=== PATIENT | female | born 1960 | race Caucasian/White ===

== ENCOUNTER 2017-01-23 22:58 | Inpatient (IN) | payer OTHER ==
--- NOTE | ~2017-01-23 | US85 ---
[facility] A Service of [facility] RADIOLOGY TEXT RESULTS PATIENT: MONICA MCKEON LOCATION: [place] [address]- : [birth year] UNIT #: [id number] AGE: [address]: Christiana Lowe MD SEX: F ORDER DR: [id number] [facility] [address] [place], [place] [address] [id number] I MR#: [id number] Acc #: [id number] NAME: MONICA MCKEON : 1960 SEX: F STUDY DATE/TIME: 01/28/2017 10:39 UNIT: [facility] ROOM: [facility] STUDY DESCRIPTION: US LE Veins Unilat or Ltd Stdy Attending Physician: Christiana Lowe M.D. Ordering Physician: Christiana Lowe M.D. Primary Care Physician: Primary Care Physician No MEDICAL IMAGING REPORT This report is preliminary unless electronic signature is present EXAM Lower extremity ultrasound or DVT on the right, 01/28/2017 INDICATIONS 56-year-old female with swelling of the right lower extremity for 6 days. No known injury. The patient is on baby aspirin daily. No history of DVT. TECHNIQUE Klein-scale color Doppler and spectral analysis of the right lower extremity was performed. We have no comparison studies. FINDINGS The exam is negative. No DVT is identified in the right lower extremity. IMPRESSION Negative. No DVT in the right lower extremity. Dictated by... Tenzin Calzada M.D. THIS IS AN ELECTRONICALLY VERIFIED REPORT Tenzin Calzada M.D. at 01/28/2017 4:19 PM Bhargavi TD: 01/28/2017 13:24 JOB #: [id number] MEDICAL IMAGING REPORT Page 1 of 1 COPY
--- NOTE | ~2017-01-23 | HP ---
Unit #: [id number] #: [id number] Patient: MONICA MCKEON [id number] [address] [place], [place] [address] [id number] I MR#: [id number] NAME: MONICA MCKEON ROOM: [facility] Age: 56 Sex: F Admission Date: 01/24/2017 : 1960 Attending Physician: Dominga Fay M.D. Primary Care Physician: No Primary Care Physician HISTORY AND PHYSICAL CHIEF COMPLAINT Extensive right leg cellulitis with early sepsis and acute kidney injury. HISTORY This 56-year-old female with CAD and normal LV function, AODM, hypertension, is admitted for right leg cellulitis with early sepsis and acute kidney injury. The patient states that she was well until three days prior to admission when she developed fevers, nausea, vomiting, lightheadedness. Her sister told the ER physician earlier that the patient had temperatures of 102 to 104 degrees with some mild confusion. In the ER, her right leg is very cellulitic. She was admitted 10/25/2016 for Strep pyogenes sepsis with bacteremia secondary to right thigh cellulitis. Also had acute kidney injury during that hospitalization. Was noted to have mild adenopathy in the right groin, thought to be reactive. PAST MEDICAL HISTORY 1. Admission 10/25/2016 for Strep pyogenes sepsis with bacteremia and acute kidney injury. She had right thigh cellulitis with mild right groin lymphadenopathy. Echo revealed ejection fraction of 50% to 55% with grade 2 diastolic dysfunction. She was seen by infectious disease, and ultimately underwent multiple dental extractions. Was also seen by hematology for persistent leukocytosis. Most recent white blood count at [facility] was 9.6 on 11/21/2016. 2. Recent admission to [facility] in October for suspected CVA. MRI scan reveals progressive small vessel ischemic disease. Loop recorder was placed. She was noted to have mild groin lymphadenopathy on CT scan at that time and was placed on antibiotics. Again, her white blood count at the time of discharge was normal. 3. History of UTIs. 4. AODM. 5. Hypertension. 6. Endometrial CA, status post GULSHAN and radiation about ten years ago. 7. CAD with normal LV function although she does have diastolic dysfunction. Cardiac catheterization 04/2016 at [facility] - three vessel CAD, most significant in the distal LAD but all vessels were very small, mild LV dysfunction, mild MR. The patient is status post RFA for SVT. 8. Hysterectomy. 9. SVT with RFA. ALLERGIES Unit #: [id number] #: [id number] Patient: MONICA MCKEON Alfide vera and hydrocortisone. MEDICATIONS Home medications from the best I can determine include: 1. Coreg 12.5 mg b.i.d. 2. Plavix 75 mg daily. 3. Hydrochlorothiazide 25 mg daily. 4. Aspirin 81 mg daily. 5. Lipitor 40 mg daily. 6. Zyrtec 10 mg daily. 7. Colace. 8. Hydralazine 50 mg t.i.d. 9. Lisinopril 40 mg daily. 10. Metformin 1000 mg b.i.d. 11. Omeprazole 20 mg daily. 12. vitamins with iron. FAMILY HISTORY Cirrhosis. SOCIAL HISTORY The patient lives alone. She is a lifelong nonsmoker, does not drink alcohol. REVIEW OF SYSTEMS Notable for fevers, lightheadedness, nausea, vomiting, diabetes, hypertension, CAD, endometrial cancer, above mentioned procedures. All other systems were reviewed and are otherwise negative. PHYSICAL EXAMINATION GENERAL APPEARANCE: Pale 56-year-old, moderately obese female, currently in no acute distress. VITAL SIGNS: Temperature 99.2, pulse 100, respirations 18, initial blood pressure 99/53, currently is 104/57 after IV fluids. O2 saturation 99% on room air. HEENT: Eyes PERRLA. Extraocular muscles are intact. Pharynx - status post multiple dental extractions noted. NECK: Supple without adenopathy or thyromegaly. CHEST: Clear. BACK: Without CVA tenderness. CARDIAC: Normal S1 and S2 with a soft systolic murmur heard throughout most of the precordium. ABDOMEN: Bowel sounds are present. No hepatosplenomegaly, tenderness or masses. EXTREMITIES: With right leg edema as compared to the left. There is extensive cellulitis of the right leg from just above the ankle into the thigh region with induration in the right groin as well. No open areas or fluctuant areas that I can see. Pedal pulses are present. No tinea pedis on the right. Negative Homans sign. One splinter hemorrhage is noted over the right second toe nail bed. The patient has a superficial ulcer left foot. However, her symptoms of cellulitis involve the right leg. NEUROLOGIC EXAM: The patient is awake, she is alert. She is a little slow to respond. Her cranial nerves are intact. She had equal strength throughout and is able to sit up without assistance. DIAGNOSTIC STUDIES LABORATORY: Admission labs - hematocrit is 34.8, white blood count is 26.4, normal platelet count. 7 bands noted. Unit #: [id number] #: [id number] Patient: MONICA MCEKON SMA-12 - glucose 149, BUN 47, creatinine 2.7, up from a BUN of 20, creatinine of 1.1 11/01/2016. Sodium 134, CO2 is 19. Lactic acid is normal, of uncertain significance. Cardiac markers are negative. Urinalysis - trace leukocyte esterase without significant white or red cells. IMAGING: Chest x-ray - stable, mild cardiomegaly. Loop recorder which is new. Old granulomatous disease. CARDIOVASCULAR: EKG - normal sinus rhythm, rate 75. ASSESSMENT 1. Recurrent and extensive right leg cellulitis without open areas or definite fluctuance: Patient presents with early sepsis. She was admitted earlier this year for Strep pyogenes sepsis and bacteremia with acute kidney injury secondary to cellulitis of the right leg. 2. Coronary artery disease with normal LV function. 3. Acute kidney injury. 4. Essential hypertension. 5. Suspected cerebrovascular accident, admitted to [facility] 10/2016 with MRI scan showing progressive small vessel ischemic disease. A loop recorder was placed at that time which is still present. 6. Adult onset diabetes mellitus, on metformin. 7. Status post total abdominal hysterectomy and XRT for endometrial CA. 8. Status post radiofrequency ablation for supraventricular tachycardia. 9. Mild right groin adenopathy in September and noted in October at [facility], thought to be reactive: Last white blood count at [facility] was normal at the time of discharge. PLANS 1. Vancomycin and Zosyn pending cultures, but will ask infectious disease to see again given recurrence of symptoms. 2. Aggressive IV fluids. 3. Hold LA inhibitor, metformin, hydrochlorothiazide, and Norvasc. Will decrease Coreg for now given low blood pressures. 4. DVT prophylaxis. 5. Check bilateral venous Dopplers to rule out DVT. Dictated by Dominga Fay M.D. AML/df TD: 01/24/2017 05:38 JOB #: [id number] Unit #: [id number] #: [id number] Patient: MONICA MCKEON HISTORY AND PHYSICAL Page 1 of 1 X Dominga Fay MD X HISTORY AND PHYSICAL
--- NOTE | ~2017-01-23 | CR126 ---
[facility] A Service of [facility] RADIOLOGY TEXT RESULTS PATIENT: MONICA MCKEON LOCATION: [facility] 478- : [birth year] UNIT #: [id number] AGE: [address]: Eric Victor MD SEX: F ORDER DR: [id number] [facility] [address] [place], [place] [address] [id number] I MR#: [id number] Acc #: [id number] NAME: MONICA MCKEON : 1960 SEX: F STUDY DATE/TIME: 01/25/2017 13:41 UNIT: C3A PCU ROOM: [facility] STUDY DESCRIPTION: CR Foot Complete Min 3 View Lt Attending Physician: Christiana Lowe M.D. Ordering Physician: Christiana Lowe M.D. Primary Care Physician: No Primary Care Physician MEDICAL IMAGING REPORT This report is preliminary unless electronic signature is present EXAM Left foot, 3 views COMPARISON None. INDICATION 56-year-old female with left foot pain and wound at the base of the fourth toe for several weeks. History of diabetes. FINDINGS There are very large enthesophytes at both poles of the calcaneal tubercle. There is diffuse osteopenia. Enthesopathy noted at the base of the fifth metatarsal. No radiopaque foreign bodies. Bones are anatomically aligned. No evidence of acute fracture or osseous destruction. IMPRESSION 1. No evidence of acute fracture, dislocation or osteomyelitis. No radiopaque foreign bodies. 2. Severe enthesopathy at both poles of the calcaneus. Dictated by... David Feng M.D. THIS IS AN ELECTRONICALLY VERIFIED REPORT David Feng M.D. at 01/30/2017 7:27 PM LEIDY/rnr TD: 01/25/2017 18:39 JOB #: [id number] MEDICAL IMAGING REPORT [facility] A Service [facility] RADIOLOGY TEXT RESULTS PATIENT: MONICA MCKEON LOCATION: [facility] [id number] : [birth year] UNIT #: [id number] AGE: [address]: Eric Victor MD SEX: F ORDER DR: Page 1 of 1 COPY
--- NOTE | ~2017-01-23 | DS ---
Unit #: [id number] #: [id number] Patient: MONICA RIGGS [id number] [address] [place], [place] [address] [id number] I MR#: [id number] NAME: MONICA RIGGS ROOM: 478 Age: 56 Sex: F Admission Date: 01/24/2017 : 1960 Discharge Date: Attending Physician: Christiana Lowe M.D. Primary Care Physician: No Primary Care Physician DISCHARGE SUMMARY ADDENDUM PRINCIPAL DIAGNOSES 1. Sepsis secondary to right lower leg cellulitis. 2. Acute kidney injury and chronic kidney disease stage 3 with baseline creatinine of 1.2. Discharge creatinine 1.2. 3. Nonanion gap metabolic acidosis secondary to RTA now resolved. 4. Normocytic anemia. Discharge hemoglobin 8.5. 5. Recurrent hypoglycemia secondary to sulfonylurea treatment with acute kidney injury, now resolved. 6. Diabetes mellitus type 2, noninsulin requiring (1) . Hemoglobin A1C 8.3 in September of 2016. 7. Severe deconditioning. 8. Recent history of a stroke without sequelae. 9. Hypertension. 10. History of endometrial cancer. 11. Obesity. 12. Chronic diastolic congestive heart failure with unknown ejection fraction. CONSULTANTS 1. Dr. Calvin, Infectious Disease. 2. Dr. Valerio, General Surgery. PROCEDURES 1. X-ray of the left foot, on January 25, 2017, without evidence of dislocation or osteomyelitis. 2. MRI of right tibia and fibula without contrast with generalized soft tissue swelling and edema about the lower extremity, same from the knee to the ankle. Confluent edema is noted but no evidence of abscess. Cellulitis is noted. Diffuse edema throughout lower leg musculature. This is nonspecific. Questionable myositis. I will note CPK was normal. 3. MRI of right ankle without contrast, on January 26, 2017, with generalized soft tissue swelling and edema about the ankle. Nonspecific edema in the foot musculature. Peroneus longus and brevis tendinopathy with longitudinal split in the peroneus brevis. CLINICAL HISTORY AND HOSPITAL COURSE Ms. Riggs is a 56-year-old female who presents to the emergency department with extensive right leg cellulitis. She was febrile in the emergency department and was found to have an elevated WBC count of 26,000 with associated bandemia. Creatinine was also elevated at 2.7, up from a baseline of approximately 1.2. She also had a mild nonanion gap metabolic Unit #: [id number] #: [id number] Patient: MONICA RIGGS acidosis. The patient was subsequently admitted. In regards to the patient's significant cellulitis, she was placed on empiric vancomycin and Rocephin per Dr. Calvin's recommendations. On this treatment, the patient is improved. Her fever has slowly resolved and her WBC count is now down to 13,000. Her leg does appear significantly improved. Given the extensive cellulitis and recurrence in her lower leg, there were concerns about underlying muscle and/or fascial involvement and MRI of he lower leg was done. There were questions about myositis but I will note her CPK is normal. I did have [facility] evaluate her and they feel that myositis is highly unlikely. I will continue antibiotics upon discharge per ID's recommendations. In regards to the patient's acute kidney injury, she was maintained on IV fluids. Nephrotoxic medications were discontinued and creatinine has now returned to her baseline. I am going to reinitiate her lisinopril and her Lasix and renal function can be followed closely. The patient did have some significant recurrent hypoglycemia secondary to her chronic sulfonylurea therapy in combination with her acute kidney injury. Her sulfonylurea has been held and, for a short period, she was maintained on D5 fluids. These have been discontinued and sugars are now running in the high one hundreds to low two hundreds. We will reinitiate Metformin upon discharge and, if sugars again remain elevated, can reinitiate her sulfonylurea. The patient does have some mild anemia and hemoglobin has remained stable, anywhere from 8.5 to 9 which is very near her baseline. Vitamin B12 was checked a few months ago and mildly low and she can be reinitiated on oral supplementation. Iron at that time was also low and we will place her on iron supplementation. The patient is significantly deconditioned and will be discharged to [facility] for rehab when antibiotics are determined per Infectious Disease. DISCHARGE CONDITION Stable. DISCHARGE STATUS Discharged to rehab. DISCHARGE MEDICATIONS 1. Tylenol 650 mg p.o. q.6 hours p.r.n. for torres or fever. 2. Metformin 1,000 mg b.i.d. 3. Zyrtec 10 mg daily. 4. Norvasc 5 mg daily. 5. Metoprolol succinate 50 mg b.i.d. 6. Lasix 20 mg daily. 7. Lipitor 40 mg at bedtime. 8. Zestril 40 mg daily. 9. A vitamin daily. 10. Aspirin 81 mg daily. 11. Plavix 75 mg daily. 12. Limestone 5/325 mg one tablet p.o. q.6 hours p.r.n. for pain. 13. Potassium chloride 20 mEq p.o. daily. 14. Vitamin B12 1,000 mcg p.o. daily. 15. Ferrous gluconate 324 mg b.i.d. Unit #: [id number] #: [id number] Patient: MONICA RIGGS DISCHARGE INSTRUCTIONS 1. The patient was instructed to follow a Heart Healthy diabetic diet. 2. She will continue Accu-Cheks a.c. and h.s. 3. Again, if sugars remain high, she can be restarted on her home Glynase which is 4 mg daily. 4. She can increase her activity as tolerated under the care of Physical Therapy. 5. She should keep her right leg elevated at all times with the foot of bed at 30 degrees. 6. Areas of erythema and ecchymoses should be coated with Bactroban 2% cream in combination with betamethasone 0.005% cream b.i.d. FOLLOWUP The patient will follow up with her primary care provider upon discharge from rehab. Antibiotics are to be dictated as an addendum. Time spent on discharge-34 minutes. Dictated by... Zuleyma Hartley TD: 01/28/2017 07:43 JOB #: [id number] ADDENDUM DISPOSITION The patient will be discharged to rehab today. ADDITIONAL DISCHARGE MEDICATION In terms of antibiotics, she will go on doxycycline 100 mg p.o. b.i.d. for 10 days and Augmentin 875 mg p.o. b.i.d. also for 10 days. Dictated by... Zuleyma Hartley TD: 01/28/2017 13:50 JOB #: [id number] CC: Nicola/allyn Please Delete DISCHARGE SUMMARY Page 1 of 1 X Christiana Lowe MD X DISCHARGE SUMMARY
--- NOTE | ~2017-01-23 | DS ---
Unit #: [id number] #: [id number] Patient: MONICA RIGGS [id number] [address] [place], [place] [address] [id number] I MR#: [id number] NAME: MONICA RIGGS ROOM: 478 Age: 56 Sex: F Admission Date: 01/24/2017 : 1960 Discharge Date: 01/28/2017 Attending Physician: Christiana Lowe M.D. Primary Care Physician: No Primary Care Physician DISCHARGE SUMMARY PRINCIPAL DIAGNOSES 1. Sepsis secondary to right right and right lower leg cellulitis. 2. Acute kidney injury and chronic kidney disease stage 3 with baseline creatinine of 1.2. Discharge creatinine 1.2. 3. Nonanion gap metabolic acidosis secondary to RTA now resolved. 4. Normocytic anemia. Discharge hemoglobin 8.5. 5. Recurrent hypoglycemia secondary to sulfonylurea treatment with acute kidney injury, now resolved. 6. Diabetes mellitus type 2, noninsulin requiring (1) . Hemoglobin A1C 8.3 in September of 2016. 7. Severe deconditioning. 8. Recent history of a stroke without sequelae. 9. Hypertension. 10. History of endometrial cancer. 11. Obesity. 12. Chronic diastolic congestive heart failure with unknown ejection fraction. CONSULTANTS 1. Dr. Calvin, Infectious Disease. 2. Dr. Valerio, General Surgery. PROCEDURES 1. X-ray of the left foot, on January 25, 2017, without evidence of dislocation or osteomyelitis. 2. MRI of right tibia and fibula without contrast with generalized soft tissue swelling and edema about the lower extremity, same from the knee to the ankle. Confluent edema is noted but no evidence of abscess. Cellulitis is noted. Diffuse edema throughout lower leg musculature. This is nonspecific. Questionable myositis. I will note CPK was normal. 3. MRI of right ankle without contrast, on January 26, 2017, with generalized soft tissue swelling and edema about the ankle. Nonspecific edema in the foot musculature. Peroneus longus and brevis tendinopathy with longitudinal split in the peroneus brevis. CLINICAL HISTORY AND HOSPITAL COURSE Ms. Riggs is a 56-year-old female who presents to the emergency department with extensive right leg cellulitis. She was febrile in the emergency department and was found to have an elevated WBC count of 26,000 with associated bandemia. Creatinine was also elevated at 2.7, up from a baseline of approximately 1.2. She also had a mild nonanion gap metabolic acidosis. The patient was subsequently admitted. Unit #: [id number] #: [id number] Patient: MONICA RIGGS In regards to the patient's significant cellulitis, she was placed on empiric vancomycin and Rocephin per Dr. Calvin's recommendations. On this treatment, the patient is improved. Her fever has slowly resolved and her WBC count is now down to 13,000. Her leg does appear significantly improved. Given the extensive cellulitis and recurrence in her lower leg, there were concerns about underlying muscle and/or fascial involvement and MRI of he lower leg was done. There were questions about myositis but I will note her CPK is normal. I did have [facility] evaluate her and they feel that myositis is highly unlikely. I will continue antibiotics upon discharge per ID's recommendations. In regards to the patient's acute kidney injury, she was maintained on IV fluids. Nephrotoxic medications were discontinued and creatinine has now returned to her baseline. I am going to reinitiate her lisinopril and her Lasix and renal function can be followed closely. The patient did have some significant recurrent hypoglycemia secondary to her chronic sulfonylurea therapy in combination with her acute kidney injury. Her sulfonylurea has been held and, for a short period, she was maintained on D5 fluids. These have been discontinued and sugars are now running in the high one hundreds to low two hundreds. We will reinitiate Metformin upon discharge and, if sugars again remain elevated, can reinitiate her sulfonylurea. The patient does have some mild anemia and hemoglobin has remained stable, anywhere from 8.5 to 9 which is very near her baseline. Vitamin B12 was checked a few months ago and mildly low and she can be reinitiated on oral supplementation. Iron at that time was also low and we will place her on iron supplementation. The patient is significantly deconditioned and will be discharged to [facility] for rehab when antibiotics are determined per Infectious Disease. DISCHARGE CONDITION Stable. DISCHARGE STATUS Discharged to rehab. DISCHARGE MEDICATIONS 1. Tylenol 650 mg p.o. q.6 hours p.r.n. for torres or fever. 2. Metformin 1,000 mg b.i.d. 3. Zyrtec 10 mg daily. 4. Norvasc 5 mg daily. 5. Metoprolol succinate 50 mg b.i.d. 6. Lasix 20 mg daily. 7. Lipitor 40 mg at bedtime. 8. Zestril 40 mg daily. 9. A vitamin daily. 10. Aspirin 81 mg daily. 11. Plavix 75 mg daily. 12. Closter 5/325 mg one tablet p.o. q.6 hours p.r.n. for pain. 13. Potassium chloride 20 mEq p.o. daily. 14. Vitamin B12 1,000 mcg p.o. daily. 15. Ferrous gluconate 324 mg b.i.d. DISCHARGE INSTRUCTIONS Unit #: [id number] #: [id number] Patient: MONICA RIGGS 1. The patient was instructed to follow a Heart Healthy diabetic diet. 2. She will continue Accu-Cheks a.c. and h.s. 3. Again, if sugars remain high, she can be restarted on her home Glynase which is 4 mg daily. 4. She can increase her activity as tolerated under the care of Physical Therapy. 5. She should keep her right leg elevated at all times with the foot of bed at 30 degrees. 6. Areas of erythema and ecchymoses should be coated with Bactroban 2% cream in combination with betamethasone 0.005% cream b.i.d. FOLLOWUP The patient will follow up with her primary care provider upon discharge from rehab. Antibiotics are to be dictated as an addendum. Time spent on discharge-34 minutes. Dictated by... Christiana Lowe M.D. YARELIS/mell TD: 01/28/2017 07:43 JOB #: [id number] DISCHARGE SUMMARY Page 1 of 1 X Christiana Lowe MD DISCHARGE SUMMARY
--- NOTE | ~2017-01-23 | EKG ---
PATIENT: MONICA MCKEON UNIT #: [id number] Ventricular Rate: 75 BPM Atrial Rate: 75 BPM P-R Interval: 154 ms QRS Duration: 96 ms Q-T Interval: 448 ms QTC Calculation(Bezet): 500 ms P Sinai: 36 degrees Calculated R Sinai: -3 degrees Calculated T Sinai: 59 degrees Diagnosis Line: Normal sinus rhythm Diagnosis Line: Prolonged QT Diagnosis Line: Abnormal ECG Diagnosis Line: When compared with ECG of 25-OCT-2016 06:10, Diagnosis Line: Right bundle branch block is no longer Present Diagnosis Line: Confirmed by SEGUNDO WEST MD ([id number]) on Diagnosis Line: 01/25/2017 4:32:07 PM INTERPRETING MD: BRETT MELENDEZ
--- NOTE | ~2017-01-23 | MR182 ---
[facility] A Service of [facility] & [facility] RADIOLOGY TEXT RESULTS PATIENT: MONICA MCKEON LOCATION: [facility] [id number] : 62 UNIT #: [id number] AGE: [address]: Christiana Lowe MD SEX: F ORDER DR: [id number] [facility] [address]. [place], [place] [address] [id number] I MR#: [id number] Acc #: [id number] NAME: MONICA MCKEON : 1960 SEX: F STUDY DATE/TIME: 01/26/2017 22:11 UNIT: C3A PCU ROOM: [facility] STUDY DESCRIPTION: MR Tibia and Fibula Wo Cont Rt Attending Physician: Christiana Lowe M.D. Ordering Physician: Aubrey Calvin M.D. Primary Care Physician: Primary Care Physician No MRI CENTER REPORT This report is preliminary unless electronic signature is present. EXAM MRI of the right lower leg. HISTORY 56-year-old female with fever x2 days, vomiting, right lower leg swelling. Suspect cellulitis. Evaluate for possible soft tissue abscess, septic arthritis. FINDINGS Multiplanar, multiecho imaging was performed of the right lower leg utilizing a high field magnet dedicated protocol. Examination demonstrates generalized soft tissue swelling and edema about the lower extremity extending from the knee to the ankle. There are some areas of confluent edema within the subcutaneous tissues. There is also mild generalized edema within the lower leg musculature involving the anterior, lateral, posterior and deep compartments. Small amount of intrafascial edema noted between the soleus and the gastrocnemius muscles. Moderate fatty atrophy of the medial head of the gastrocnemius muscle. Visualized neurovascular structures appear normal. Knee joint is only partially visualized and demonstrates minimal fluid but no marrow edema. Early arthritic changes are seen within the knee joint. Visualized ankle joint unremarkable. Please see separate MRI of the ankle report for details. No marrow edema. IMPRESSION 1. Generalized soft tissue swelling and edema about the lower extremity extending from the knee to the ankle with areas of s confluent edema but no drainable fluid collection or abscess. In the appropriate setting findings are compatible with cellulitis. 2. Mild but diffuse edema throughout the lower leg musculature with a small amount of intrafascial edema deep to the medial head of the gastrocnemius muscle. Findings are nonspecific and may be reactive due to overlying soft tissue swelling and edema. Diffuse myositis STS. [facility] A Service of [facility] RADIOLOGY TEXT RESULTS PATIENT: MONICA MCKEON LOCATION: [place] [address] : [birth year] UNIT #: [id number] AGE: [address]: Christiana Lowe MD SEX: F ORDER DR: considered less likely to involve all of the compartments. The interfascial edema is also nonspecific, could be related to generalized soft tissue swelling and edema. This can be associated with fasciitis. Correlate with patient's clinical presentation as typically these patients are extremely septic. 3. No evidence of septic arthritis or osteomyelitis. Dictated by... Louis Santillan M.D. THIS IS AN ELECTRONICALLY VERIFIED REPORT Louis Santillan M.D. at 01/27/2017 5:29 PM Yolanda TD: 01/27/2017 08:27 JOB #: [id number] MRI CENTER REPORT Page 1 of 1 COPY
--- NOTE | ~2017-01-23 | CR72 ---
[facility] A Service of [facility] RADIOLOGY TEXT RESULTS PATIENT: MONICA MCKEON LOCATION: [facility] : 62 UNIT #: [id number] AGE: [address]: Christiana Lowe MD SEX: F ORDER DR: [id number] [facility] [address] [place], [place] [address] [id number] I MR#: [id number] Acc #: [id number] NAME: MONICA MCKEON : 1960 SEX: F STUDY DATE/TIME: 01/23/2017 23:38 UNIT: [address] ROOM: [facility] STUDY DESCRIPTION: CR Chest Single View Portable Attending Physician: Dominga Fay M.D. Ordering Physician: Piotr Johnson M.D. Primary Care Physician: Primary Care Physician No MEDICAL IMAGING REPORT This report is preliminary unless electronic signature is present EXAM AP portable chest 01/23/2017 at 23:38 HISTORY Shortness of breath, fever, nausea and vomiting today. COMPARISON PA and lateral chest radiograph 10/28/2016. FINDINGS Clear lungs. Heart size is mildly enlarged but stable. Benign calcified granulomatous changes bilaterally. Presumed loop recorder projects over the left lower mediastinum. No pneumothorax. No acute osseous abnormalities. IMPRESSION 1. No acute cardiopulmonary findings. 2. Stable mild cardiomegaly. 3. Presumed loop recorder over the left lower mediastinum, is new from 10/28/2016. 4. Benign calcified granulomatous changes. Dictated by... Olga Bloom M.D. THIS IS AN ELECTRONICALLY VERIFIED REPORT Olga Bloom M.D. at 01/25/2017 9:59 PM ROBERT/sneha TD: 01/24/2017 06:24 JOB #: [id number] [facility] A Service of [facility] RADIOLOGY TEXT RESULTS PATIENT: MONICA MCKEON LOCATION: [place] [address] : 62 UNIT #: [id number] AGE: [address]: Christiana Lowe MD SEX: F ORDER DR: MEDICAL IMAGING REPORT Page 1 of 1 COPY
--- NOTE | ~2017-01-23 | DS ---
Unit #: [id number] #: [id number] Patient: MONICA MCKEON [id number] [address] [place], [place] [address] [id number] I MR#: [id number] NAME: MONICA MCKEON ROOM: 478 Age: 56 Sex: F Admission Date: 01/24/2017 : 1960 Discharge Date: 01/30/2017 Attending Physician: Eric Victor M.D. Primary Care Physician: No Primary Care Physician DISCHARGE SUMMARY ADDENDUM The patient remained stable. Was seen by Dr. Mayfield and Dr. Calvin in ID consultation. Patient was also seen by Dr. Romo. Dr. Romo has recommended today patient can be discharged to rehab and has recommended [facility] to see patient in the rehab facility. PHYSICAL EXAMINATION GENERAL: Today patient is comfortable, is not in any acute distress. VITAL SIGNS: Her vital signs reveal temperature of 98.4, pulse is 73 per minute, respiratory rate is 16 per minute, blood pressure 183/66. HEENT: Revealed no conjunctival congestion. Sclerae nonicteric. NECK: Supple. Trachea is central. RESPIRATORY: Revealed decreased breath sounds bilaterally. There are no wheezes or crackles. HEART: Regular rate and rhythm. S1, S2. ABDOMEN: Soft, nontender. Bowel sounds are present in all four quadrants. EXTREMITIES: The patient has right lower extremity dressing. SKIN: Warm and dry. DISPOSITION Patient will be transferred to rehab facility. MEDICATIONS Medications are as dictated by Dr. Lowe, plus patient's Norvasc I have increased to 10 mg p.o. daily today because of elevated blood pressure. Kindly monitor patient's blood pressure closely. 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 A prescription for [place] is also written by Dr. Lowe and will go with patient. Dictated by... Zuleyma Can/james TD: 01/30/2017 09:20 JOB #: [id number] Unit #: [id number] #: [id number] Patient: MONICA MCKEON DISCHARGE SUMMARY Page 1 of 1 X Eric Victor MD SUMMARY
--- NOTE | ~2017-01-23 | MR11 ---
[facility] A Service of [facility] & [facility] RADIOLOGY TEXT RESULTS PATIENT: MONICA MCKEON LOCATION: [facility] 478- : 62 UNIT #: [id number] AGE: [address]: Christiana Lowe MD SEX: F ORDER DR: [id number] [facility] [address] [place], [place] [address] [id number] I MR#: [id number] Acc #: [id number] NAME: MONICA MCEKON : 1960 SEX: F STUDY DATE/TIME: 01/26/2017 22:34 UNIT: C3A PCU ROOM: [facility] STUDY DESCRIPTION: Ankle Wo Contrast Rt Attending Physician: Christiana Lowe M.D. Ordering Physician: Aubrey Calvin M.D. Primary Care Physician: No Primary Care Physician MRI CENTER REPORT This report is preliminary unless electronic signature is present. EXAM MRI of the right ankle without contrast HISTORY 56-year-old female with fever x2 days. Right lower leg swelling. Cellulitis. Pain, redness and swelling from knee to ankle. Clinical concern for abscess and/or septic arthritis. TECHNIQUE Multiplanar, multiecho imaging was performed of the right ankle utilizing a high-field magnet and dedicated protocol. FINDINGS Bone structure and alignment appears normal. No focal marrow edema. Ankle and subtalar joint fluid within normal limits. There is peroneus brevis and peroneus longus tendinopathy with a retromalleolar and inframalleolar peroneus brevis longitudinal split tear estimated about 4 cm in length. Remainder of the ankle tendon is unremarkable. Ankle ligaments unremarkable. Generalized soft tissue swelling and edema about the ankle. No drainable fluid collection or abscess. There is also edema within the deep foot musculature, nonspecific. IMPRESSION 1. Generalized soft tissue swelling and edema about the ankle in the clinical setting is consistent with cellulitis. No evidence of abscess or septic arthritis. 2. Nonspecific edema within the foot musculature. This is similar to what was seen in the lower leg. It could represent diffuse myositis though this would be uncommon. I suspect this may just be reactive. 3. Peroneus longus and brevis tendinopathy with a longitudinal split STS. [facility] A Service of [facility] & [facility] RADIOLOGY TEXT RESULTS PATIENT: MONICA MCKEON LOCATION: [facility] [id number] : 62 UNIT #: [id number] AGE: [address]: Christiana Lowe MD SEX: F ORDER DR: tear peroneus brevis. Dictated by... Louis Santillan M.D. THIS IS AN ELECTRONICALLY VERIFIED REPORT Louis Santillan M.D. at 01/27/2017 5:29 PM CLARISA/arley TD: 01/27/2017 08:58 JOB #: [id number] MRI CENTER REPORT Page 1 of 1 COPY
--- NOTE | ~2017-01-23 | CO ---
Unit #: [id number] #: [id number] Patient: MONICA MCKEON [id number] [address] [place], [place] [address] [id number] MR#: [id number] NAME: MONICA MCKEON ROOM: 337 Age: 56 Sex: F Admission Date: 01/24/2017 : 1960 Attending Physician: Christiana Lowe M.D. Primary Care Physician: No Primary Care Physician Consultation Date: 01/24/2017 CONSULTATION REPORT REASON FOR CONSULTATION Recurrent cellulitis right lower extremity. HISTORY OF PRESENT ILLNESS This is a 56-year-old female who is known to our service from 09/2016 with similar presentation. Please note that at that time her group A strep test status post right leg cellulitis with acute kidney injury, but did not show any abscess on the CT scan. The patient eventually improved and she had negative blood cultures at discharge and was sent home on oral ampicillin. The patient reports she completed her antibiotics and she has been doing well. The patient has a history of diabetes and she reports that over the last few days has had elevated blood sugars and fevers up to 104 degrees Fahrenheit. Last p.m. started with redness over her right leg with difficulty ambulating. The patient presented to the emergency room and was admitted to the hospital with cellulitis of her right lower extremity. The patient has been started on vancomycin and Zosyn, but again the patient has acute kidney injury and infectious disease was asked to evaluate for further management. PAST MEDICAL HISTORY 1. As previously stated above, group A strep sepsis with acute kidney injury and right leg cellulitis. 2. The patient also at that time had multiple dental extractions. 3. The patient had suspected (1) in October, unsure which year. 4. Urinary tract infection. 5. Diabetes. 6. Hypertension. 7. Endometrial cancer. Status post radiation and total hysterectomy. 8. Coronary artery disease. 9. Hysterectomy. SOCIAL HISTORY The patient lives with others. She denies any tobacco or alcohol abuse. ALLERGIES Aloe vera and hydrocortisone. CURRENT MEDICATIONS Vancomycin and Zosyn. For further medications please refer to the patient's MAR. REVIEW OF SYSTEMS The patient reports that she has had fever and chills at home. She reports minimal nausea. She reports pain with swelling in her right lower Unit #: [id number] #: [id number] Patient: MONICA MCKEON extremity. She also reports a wound on her left foot. PHYSICAL EXAMINATION GENERAL: This is a no apparent distress female who is lying in the bed comfortably. She does appear to have a (2) . VITALS: Temperature 99.7, no documented fever in the emergency room. Pulse 115, blood pressure 130/83, respiratory rate 18. HEENT: Pupils are equal. NECK: Trachea central. LUNGS: Clear to auscultation bilaterally with no wheezes or rhonchi noted. HEART: S1 and S2. Regular rate and rhythm. ABDOMEN: Positive bowel sounds. Soft and nontender. EXTREMITIES: Right lower extremity reveals the full length from her groin to her foot with erythema, swelling, tenderness and warmth. There is no open wound with minimal cracked skin. Her left foot reveals a healing scab also with no evidence of drainage or cellulitis. DIAGNOSTIC STUDIES IMAGING: Ultrasound of the lower extremities is pending. Chest x-ray shows no cardiopulmonary findings. LABORATORY: BUN 47, creatinine 2.7, sodium 134, potassium 3.7, chloride 101, CO2 19, bilirubin 0.8, LFT 32, ALT 29, lactic acid 1.7. White blood cell count 24.9, and on admission 26.4, hemoglobin 10.6, hematocrit 32.2, platelets 193. HIV in 10/2016 was negative. Urinalysis is unremarkable. Microbiology, blood cultures are currently pending. ASSESSMENT/PLAN This is a 56-year-old female with recent group A strep sepsis with associated right thigh cellulitis and acute kidney injury in 09/2016. The patient did well that admission and was sent home on p.o. ampicillin. The patient, however, returned after similar presentation with chills and fever at home with development of cellulitis approximately 24 hours later. The patient was admitted to the hospital and was found to have profound cellulitis in the right lower extremity, acute kidney injury with a creatinine greater than 2.7, as well as fever at home, however, not documented here. She has obvious rigors and chills. At this time the patient has a relapse of her group A strep sepsis as this is classic presentation of fever prior to cellulitis presenting. She has no open wounds on her right lower extremity. There is concern that she will need further imaging of her leg. However, CT scan with contrast would not be possible due to her kidney injury and she may not be able to an MRI due to her loop recorder in place. I am unclear if the CT scan without contrast will have any benefit, showing any abscesses. The patient may need surgical evaluation to evaluate and rule out necrotizing fasciitis. At this time the patient is on vancomycin and Zosyn and will continue at this time until discussed with Dr. Aubrey Calvin. The combination of these drugs may worsen her acute renal failure. Will have the nursing staff follow with any positive blood cultures. Will check a CBC and BMP in the a.m. Will also check a CRP and sedimentation rate and at this time, until further discussion with Dr. Aubrey Calvin, will check a CT scan of the right lower extremity without contrast. This case will be discussed in detail with Dr. Aubrey Calvin. He will be by to see this patient shortly. Thank you for allowing us to participate in the care of this patient. Further recommendations to follow pending the patient's clinical course. Unit #: [id number] #: [id number] Patient: MONICA MCKEON Dictated by... Katya MillerPSaraRSaraN. for Zuleyma Carlos/carol TD: 01/24/2017 10:21 JOB #: [id number] CONSULTATION REPORT Page 1 of 1 X X CONSULTATION REPORT
[~2017-01-23 22:58] MED LIST: ASPIRIN81 M2 PO; GLYNASE PO; IRON; LASIX20 MG PO; LIPITOR40 MG PO; LISINOPRIL PO; METFORMIN PO; METOPROLOL SUCC50 MG PO; NORVASC PO; POTASSIUM OTC; PRENATAL VITAM1 EAC1 PO; ZYRTEC10 M1 PO
[2017-01-23 23:41] LABS: BASOPHIL# 0.1 X10e3 (0-0.3); BASOPHIL% 0.5 % (0-2.5); HEMATOCRIT 34.8 % (35.0-45.0); HEMOGLOBIN 11.3 gm/dL (12.0-16.0); LYMPHOCYTE# 1.5 X10e3 (1.0-3.5); LYMPHOCYTE% 5.6 % (17.0-45.0); MEAN CELL VOLUME 86.8 FL (83-96); MEAN CORPUSCULAR HEMOGLOBIN 28.2 PG (28-34); MEAN CORPUSCULAR HGB CONC 32.5 g/dL (30-36); MEAN PLATELET VOLUME 9.4 FL (6.5-11.5); MONOCYTE% 3.8 % (3.0-12.0); NEUTROPHIL# 23.8 X10e3 (1.5-7.1); NEUTROPHIL% 90.1 % (40-75); PLATELET COUNT 215 X10e3 (140-420); RED BLOOD COUNT 4.01 X10e (3.90-5.30); RED CELL DISTRIBUTION WIDTH 14.3 % (11.0-15.5); WHITE BLOOD COUNT 26.4 X10e3 (4.0-10.5)
[2017-01-23 23:43] LABS: DIFF IND YES
[2017-01-23 23:48] LABS: POC - CKMB <1.0 ng/mL (0.0-7.9); POC - TROPONIN <0.05 ng/mL (<=0.05)
[2017-01-23 23:59] LABS: ALBUMIN SERUM 3.5 g/dL (3.5-5.0); BILIRUBIN, DIRECT 0.2 mg/dL (0.0-0.2); BILIRUBIN,INDIRECT 0.6 mg/dL (0.0-0.9); BILIRUBIN,TOTAL 0.8 mg/dL (0.2-2.0); BUN/CREATININE RATIO 17.4; CALCIUM SERUM 8.7 mg/dL (8.4-10.2); CREATININE SERUM 2.7 mg/dL (0.6-1.4); GLOM FILT RATE Estimated 19.1 mL/min (>60); PLATELET ESTIMATE NORMAL (NORMAL); POTASSIUM 3.7 mmol/L (3.5-5.1); PROTEIN TOTAL SERUM 7.5 g/dL (6.0-8.3); RBC NORMAL YES
[2017-01-24 00:26] LABS: URINE SOURCE CATH
[2017-01-24 00:29] LABS: URINE APPEARANCE CLOUDY; URINE BILIRUBIN NEG (NEG); URINE BLOOD TRACE (NEG); URINE COLOR YELLOW; URINE GLUCOSE NEG (NEG); URINE KETONE NEG (NEG); URINE LEUKOCYTE ESTERASE TRACE (NEG); URINE NITRATE NEG (NEG); URINE PROTEIN 1+ (NEG); URINE SPECIFIC GRAVITY 1.014 (1.003-1.035); URINE UROBILINOGEN 0.2 MG/DL (NEG)
[2017-01-24 00:32] LABS: URINE BACTERIA AUWI NEG (NEGATIVE); URINE SQUAMOUS EPITHELIAL CELL FEW /[HPF]
[2017-01-24 00:43] LABS: CULTURE INDICATED? NO
[2017-01-24 09:16] LABS: BASOPHIL# 0.1 X10e3 (0-0.3); BASOPHIL% 0.5 % (0-2.5); HEMATOCRIT 32.2 % (35.0-45.0); HEMOGLOBIN 10.6 gm/dL (12.0-16.0); LYMPHOCYTE# 1.2 X10e3 (1.0-3.5); LYMPHOCYTE% 4.7 % (17.0-45.0); MEAN CELL VOLUME 88.2 FL (83-96); MEAN CORPUSCULAR HEMOGLOBIN 29.1 PG (28-34); MEAN PLATELET VOLUME 9.7 FL (6.5-11.5); MONOCYTE# 0.9 X10e3 (0-1.0); MONOCYTE% 3.5 % (3.0-12.0); NEUTROPHIL# 22.8 X10e3 (1.5-7.1); NEUTROPHIL% 91.3 % (40-75); PLATELET COUNT 193 X10e3 (140-420); RED BLOOD COUNT 3.65 X10e (3.90-5.30); RED CELL DISTRIBUTION WIDTH 14.8 % (11.0-15.5); WHITE BLOOD COUNT 24.9 X10e3 (4.0-10.5)
[2017-01-24 09:17] LABS: DIFF IND NO
[2017-01-24 09:39] LABS: CALCIUM SERUM 7.9 mg/dL (8.4-10.2); CREATININE SERUM 2.1 mg/dL (0.6-1.4); GLOM FILT RATE Estimated 25.8 mL/min (>60); POTASSIUM 3.6 mmol/L (3.5-5.1)
[2017-01-25 06:39] LABS: HEMATOCRIT 30.3 % (35.0-45.0); HEMOGLOBIN 9.6 gm/dL (12.0-16.0); MEAN CELL VOLUME 88.2 FL (83-96); MEAN CORPUSCULAR HGB CONC 31.8 g/dL (30-36); MEAN PLATELET VOLUME 9.6 FL (6.5-11.5); PLATELET COUNT 175 X10e3 (140-420); RED BLOOD COUNT 3.43 X10e (3.90-5.30); RED CELL DISTRIBUTION WIDTH 14.7 % (11.0-15.5); WHITE BLOOD COUNT 20.8 X10e3 (4.0-10.5)
[2017-01-25 06:40] LABS: BUN/CREATININE RATIO 18.12; CALCIUM SERUM 7.6 mg/dL (8.4-10.2); CREATININE SERUM 1.6 mg/dL (0.6-1.4); GLOM FILT RATE Estimated 35.9 mL/min (>60); POTASSIUM 3.4 mmol/L (3.5-5.1)
[2017-01-26 05:51] LABS: HEMATOCRIT 28.5 % (35.0-45.0); HEMOGLOBIN 9.2 gm/dL (12.0-16.0); MEAN CELL VOLUME 87.6 FL (83-96); MEAN CORPUSCULAR HEMOGLOBIN 28.4 PG (28-34); MEAN CORPUSCULAR HGB CONC 32.4 g/dL (30-36); MEAN PLATELET VOLUME 9.6 FL (6.5-11.5); RED BLOOD COUNT 3.26 X10e (3.90-5.30); RED CELL DISTRIBUTION WIDTH 14.9 % (11.0-15.5); WHITE BLOOD COUNT 17.1 X10e3 (4.0-10.5)
[2017-01-26 06:41] LABS: CALCIUM SERUM 7.7 mg/dL (8.4-10.2); CREATININE SERUM 1.5 mg/dL (0.6-1.4); GLOM FILT RATE Estimated 38.8 mL/min (>60); MAGNESIUM 1.6 mg/dL (1.6-3.0); POTASSIUM 3.7 mmol/L (3.5-5.1)
[2017-01-27 06:35] LABS: HEMATOCRIT 24.8 % (35.0-45.0); MEAN CELL VOLUME 87.2 FL (83-96); MEAN CORPUSCULAR HEMOGLOBIN 28.1 PG (28-34); MEAN CORPUSCULAR HGB CONC 32.3 g/dL (30-36); MEAN PLATELET VOLUME 9.8 FL (6.5-11.5); RED BLOOD COUNT 2.84 X10e (3.90-5.30); RED CELL DISTRIBUTION WIDTH 14.8 % (11.0-15.5); WHITE BLOOD COUNT 15.7 X10e3 (4.0-10.5)
[2017-01-27 07:45] LABS: BUN/CREATININE RATIO 14.61; CREATININE SERUM 1.3 mg/dL (0.6-1.4); GLOM FILT RATE Estimated 46.2 mL/min (>60); POTASSIUM 4.1 mmol/L (3.5-5.1)
[2017-01-27 21:04] LABS: URINE APPEARANCE CLOUDY; URINE BILIRUBIN NEG (NEG); URINE BLOOD 2+ (NEG); URINE COLOR YELLOW; URINE GLUCOSE 250 MG/DL (NEG); URINE KETONE NEG (NEG); URINE LEUKOCYTE ESTERASE NEG (NEG); URINE NITRATE NEG (NEG); URINE PROTEIN 2+ (NEG); URINE SPECIFIC GRAVITY 1.018 (1.003-1.035)
[2017-01-27 21:07] LABS: URBCS1 AUWI 0-2 /[HPF] (0-2); URINE BACTERIA AUWI NEG (NEGATIVE); URINE SQUAMOUS EPITHELIAL CELL OCC /[HPF]
[2017-01-27 21:09] LABS: URINE YEAST PRESENT
[2017-01-28 03:22] LABS: HEMATOCRIT 26.2 % (35.0-45.0); HEMOGLOBIN 8.5 gm/dL (12.0-16.0); MEAN CELL VOLUME 87.3 FL (83-96); MEAN CORPUSCULAR HEMOGLOBIN 28.3 PG (28-34); MEAN CORPUSCULAR HGB CONC 32.5 g/dL (30-36); MEAN PLATELET VOLUME 9.5 FL (6.5-11.5); RED CELL DISTRIBUTION WIDTH 15.1 % (11.0-15.5); WHITE BLOOD COUNT 13.9 X10e3 (4.0-10.5)
[2017-01-28 03:47] LABS: BUN/CREATININE RATIO 15.83; CALCIUM SERUM 8.3 mg/dL (8.4-10.2); CREATININE SERUM 1.2 mg/dL (0.6-1.4); GLOM FILT RATE Estimated 50.8 mL/min (>60); POTASSIUM 3.9 mmol/L (3.5-5.1)
[2017-01-29 03:12] LABS: BASOPHIL# 0.1 X10e3 (0-0.3); BASOPHIL% 0.9 % (0-2.5); EOSINOPHIL# 0.2 X10e3 (0-0.7); EOSINOPHIL% 1.4 % (0.0-7.0); HEMATOCRIT 26.9 % (35.0-45.0); HEMOGLOBIN 8.9 gm/dL (12.0-16.0); LYMPHOCYTE# 1.4 X10e3 (1.0-3.5); LYMPHOCYTE% 10.1 % (17.0-45.0); MEAN CELL VOLUME 86.1 FL (83-96); MEAN CORPUSCULAR HEMOGLOBIN 28.4 PG (28-34); MEAN CORPUSCULAR HGB CONC 32.9 g/dL (30-36); MEAN PLATELET VOLUME 9.5 FL (6.5-11.5); MONOCYTE# 1.8 X10e3 (0-1.0); MONOCYTE% 13.3 % (3.0-12.0); NEUTROPHIL# 10.2 X10e3 (1.5-7.1); NEUTROPHIL% 74.3 % (40-75); PLATELET COUNT 293 X10e3 (140-420); RED BLOOD COUNT 3.12 X10e (3.90-5.30); RED CELL DISTRIBUTION WIDTH 14.9 % (11.0-15.5); WHITE BLOOD COUNT 13.7 X10e3 (4.0-10.5)
[2017-01-29 03:15] LABS: DIFF IND NO
[2017-01-29 04:03] LABS: CALCIUM SERUM 8.3 mg/dL (8.4-10.2); GLOM FILT RATE Estimated 63.4 mL/min (>60)
[2017-01-30 02:42] LABS: BASOPHIL# 0.2 X10e3 (0-0.3); BASOPHIL% 1.1 % (0-2.5); EOSINOPHIL# 0.3 X10e3 (0-0.7); EOSINOPHIL% 1.9 % (0.0-7.0); HEMATOCRIT 28.7 % (35.0-45.0); HEMOGLOBIN 9.4 gm/dL (12.0-16.0); LYMPHOCYTE# 1.7 X10e3 (1.0-3.5); LYMPHOCYTE% 11.8 % (17.0-45.0); MEAN CELL VOLUME 86.8 FL (83-96); MEAN CORPUSCULAR HEMOGLOBIN 28.5 PG (28-34); MEAN CORPUSCULAR HGB CONC 32.8 g/dL (30-36); MEAN PLATELET VOLUME 9.4 FL (6.5-11.5); MONOCYTE# 1.8 X10e3 (0-1.0); MONOCYTE% 12.3 % (3.0-12.0); NEUTROPHIL# 10.7 X10e3 (1.5-7.1); NEUTROPHIL% 72.9 % (40-75); PLATELET COUNT 391 X10e3 (140-420); RED CELL DISTRIBUTION WIDTH 14.5 % (11.0-15.5); WHITE BLOOD COUNT 14.7 X10e3 (4.0-10.5)
[2017-01-30 02:48] LABS: DIFF IND NO
[2017-01-30 03:08] LABS: BUN/CREATININE RATIO 21.11; CALCIUM SERUM 8.7 mg/dL (8.4-10.2); CREATININE SERUM 0.9 mg/dL (0.6-1.4); POTASSIUM 3.9 mmol/L (3.5-5.1)
== END 2017-01-30 14:23 | DRG 872 ==
LOC: CED 22:58 → CEDOF 01-24 02:00 → C3A PCU 01-24 04:00 → C4C 01-27 10:14
PROVIDERS: Emergency Medicine; Internal Medicine
DX: A40.0 Sepsis due to streptococcus, group A (principal); R65.20 Severe sepsis without septic shock; N17.9 Acute kidney failure, unspecified; I13.0 Hypertensive heart and chronic kidney disease with heart failure and stage 1 through stage 4 chronic kidney disease, or unspecified chronic kidney disease; N18.3 Chronic kidney disease, stage 3 (moderate); I50.32 Chronic diastolic (congestive) heart failure; L03.115 Cellulitis of right lower limb; E87.1 Hypo-osmolality and hyponatremia; E11.649 Type 2 diabetes mellitus with hypoglycemia without coma; D64.9 Anemia, unspecified; E16.0 Drug-induced hypoglycemia without coma; T38.3X5A Adverse effect of insulin and oral hypoglycemic [antidiabetic] drugs, initial encounter; Y92.9 Unspecified place or not applicable; Z79.84 Long term (current) use of oral hypoglycemic drugs; E11.628 Type 2 diabetes mellitus with other skin complications; E11.22 Type 2 diabetes mellitus with diabetic chronic kidney disease; E66.9 Obesity, unspecified; I25.10 Atherosclerotic heart disease of native coronary artery without angina pectoris; E78.5 Hyperlipidemia, unspecified; S90.822A Blister (nonthermal), left foot, initial encounter; Z88.8 Allergy status to other drugs, medicaments and biological substances; Z87.440 Personal history of urinary (tract) infections; Z90.710 Acquired absence of both cervix and uterus; Z83.79 Family history of other diseases of the digestive system; Z86.73 Personal history of transient ischemic attack (TIA), and cerebral infarction without residual deficits; Z85.89 Personal history of malignant neoplasm of other organs and systems
CPT/HCPCS: 36415; 71010; 73630; 73718; 73721; 80048; 80076; 80202; 81003; 82533; 82550; 82553; 82947; 83605; 83735; 84484; 85025; 85027; 85652; 86140; 87040; 93005; 93971; 96365; 96366; 96367; 97110; 97116; 97162; 97165; 97530; 97535; 99285; G8978-GP; G8979-GP; G8980-GP; J0360; J0696; J1650; J1815; J2543; J3370